=== PATIENT | male | born 1985 | race Two or more races ===

== ENCOUNTER 2019-04-25 15:17 | Emergency (ER) | payer OTHER ==
[~2019-04-25] VITALS: Ht 170.2 cm; Wt 81.6 kg
[2019-04-25] MEDS ORDERED: IV NS 0.9% 1,000 ML BAG IV ONE (16:00)
[2019-04-25] MEDS ORDERED: ONDANSETRON HCL/PF 4 MG/2 ML VIAL IVP ONE (16:00)
[2019-04-25] MEDS ORDERED: diphenhydrAMINE HCL 50 MG/ML VIAL ONE (16:09)
[2019-04-25] MEDS ORDERED: ONDANSETRON HCL/PF 4 MG/2 ML VIAL ONE (16:09)
[2019-04-25 16:22] LABS: BASOPHILS # (AUTO) 0.1 /CMM (0.0-0.2); BASOPHILS % (AUTO) 1.5 % (0.0-2.0); EOSINOPHILS % (AUTO) 1.1 % (0.0-6.0); HEMATOCRIT 35 % (39-51); HEMOGLOBIN 10.3 g/dL (13.5-17.5); LYMPHOCYTES # (AUTO) 2.9 /CMM (0.8-4.8); LYMPHOCYTES % (AUTO) 56.2 % (20.0-44.0); MEAN CORPUSCULAR HGB CONC 30 g/dl (31.0-36.0); MEAN CORPUSCULAR VOLUME 68 fL (80-96); MONOCYTES # (AUTO) 0.4 /CMM (0.1-1.30); MONOCYTES % (AUTO) 7.6 % (2.0-12.0); NEUTROPHILS # (AUTO) 1.7 /CMM (1.8-8.9); NEUTROPHILS % (AUTO) 33.6 % (43.0-81.0); PLATELET COUNT (AUTO) 400 /CMM (150-450); RED BLOOD CELL COUNT(AUTO) 5.15 MIL/uL (4.5-6.0); WHITE BLOOD COUNT (AUTO) 5.2 K/uL (4.3-11.0)
[2019-04-25] MEDS ORDERED: diphenhydrAMINE HCL 50 MG/ML VIAL IV ONE (16:30)
[2019-04-25 16:41] LABS: CALCIUM, SERUM 8.7 mg/dL (8.5-10.1); CREATININE 0.8 mg/dL (0.6-1.3); POTASSIUM 4.1 mmol/L (3.5-5.1)
[2019-04-25 16:49] LABS: ALBUMIN 4.4 g/dL (3.4-5.0); BILIRUBIN,DIRECT 0.1 mg/dL (0.0-0.2); BILIRUBIN,TOTAL 0.5 mg/dL (0.2-1.0); TOTAL PROTEIN, SERUM 8.4 g/dL (6.4-8.2)
--- NOTE | 2019-04-25 19:30 | NUR ---
TOOK OVER CARE, PT RESTING WITH EYES CLOSED, PT HERE FOR ETOH. RR EVEN AND UNLABORED. NO SOB NOTED. NO NVD AT THIS TIME. SITTER WITHIN LINE OF SIGHT.
--- NOTE | 2019-04-25 23:03 | NUR ---
PT AMBULATORY TO RESTROOM WITH STEADY GAIT.
--- NOTE | 2019-04-25 23:56 | NUR ---
PT CLEARED FOR DISCHARGE PER DR. CMAPA. PT AOX4 AMBULATORY WITH STEADY GAIT. PT DENIES BEING HOMELESS HOWEVER PROVIDED WITH TAP CARD MEANS OF TRANSPORTATION, OKAY PER DR. CAMPA. IV REMOVED, IV CATHETER INTACT, PRESSURE GAUZE APPLIED. NO ACTIVE BLEEDING. PT RECEIVED DISCHARGE INSTRUCTIONS. PT VERBALIZED UNDERSTANDING. PT INSTRUCTED NOT TO DRIVE. PT VERBALIZED UNDERSTANDING.
[2019-04-25 23:59] VITALS: BP 138/77
== END 2019-04-26 | disposition home or self-care (01) ==
LOC: ER 15:24
DX: F10.129 Alcohol abuse with intoxication, unspecified (principal); J45.909 Unspecified asthma, uncomplicated; R41.82 Altered mental status, unspecified; Y90.8 Blood alcohol level of 240 mg/100 ml or more
CPT/HCPCS: 36415; 70450; 80048; 80076; 80307; 82962 ×2; 85025; 96361; 96374; 96375; 99284; J1200; J2405; J7030; G0480

== ENCOUNTER 2019-04-26 04:41 | Emergency (ER) | payer OTHER ==
[~2019-04-26] VITALS: Ht 170.2 cm; Wt 81.6 kg
--- NOTE | 2019-04-26 04:45 | NUR ---
PT BIB EMS ETOH FROM THE STREET, RECENTLY D/C FROM HERE FOR ETOH INTOXICATION. PT UNABLE TO ANSWER. PT ON MONITOR IN BED 12. WILL CONTINUE TO MONITOR.
[2019-04-26] MEDS ORDERED: DEXTROSE 50%-WATER 50 ML DISP.SYRIN ONE (05:09)
[2019-04-26] MEDS ORDERED: DEXTROSE 50%-WATER 50 ML DISP.SYRIN IVP ONE (05:30)
--- NOTE | 2019-04-26 05:55 | NUR ---
Patient is resting comfortably in bed with eyes closed. VSS.
--- NOTE | 2019-04-26 07:36 | NUR ---
REPORT REC'D FROM [facility]
[2019-04-26 13:23] VITALS: BP 112/69
--- NOTE | 2019-04-26 14:06 | NUR ---
Patient given written and verbal discharge instructions. Patient verbalizes understanding of instructions. Patient is ambulatory with steady gait. Refuses offer of jail placement. Patient given list of available shelters in surrounding area.
== END 2019-04-26 14:09 | disposition home or self-care (01) ==
LOC: ER 04:44
DX: F10.129 Alcohol abuse with intoxication, unspecified (principal); E16.2 Hypoglycemia, unspecified; J45.909 Unspecified asthma, uncomplicated; Y90.9 Presence of alcohol in blood, level not specified
CPT/HCPCS: 82962-TC